=== PATIENT | female | born 1990 | race Caucasian/White ===

== ENCOUNTER 2017-01-26 21:13 | Emergency (ER) | payer OTHER | END 2017-01-26 23:31 | disposition home or self-care (01) | LOC: FER 21:13 | DX: J40 Bronchitis, not specified as acute or chronic (principal); J32.9 Chronic sinusitis, unspecified; F17.200 Nicotine dependence, unspecified, uncomplicated | CPT/HCPCS: 93005 ==

== ENCOUNTER 2022-02-13 22:44 | Emergency (ER) | payer OTHER ==
[~2022-02-13 22:44] MED LIST: BACLOFEN 10MG T10 MG PO; BACTRIM DS TAB1 EACH PO; ILOTYCIN1 GM OD; MEDROL 4MG DOSEP4 MG PO; NAPROXEN500 MG PO; NORCO 5-325 TA1 EACH PO; PERCOCET 5-3251 EACH PO; VOLTAREN **OUT75 MG PO; ZOFRAN4 MG PO
[2022-02-13 23:18] LABS: BASOPHIL 0.2 % (0-2); EOSINOPHIL 0.3 % (0-5); HCT 41.7 % (37.0-47.0); HGB 13.7 g/dl (12.5-16.0); LYMPHOCYTE 4.5 % (15-48); MCHC 32.9 g/dL (32.0-36.0); MCV 88.2 fL (78.0-100.0); MONOCYTE 3.1 % (0-12); MPV 9.8 fL (6.0-9.5); NEUTROPHIL 91.5 % (41-80); NRBC 0; PLT 177 K/uL (150-400); RBC 4.73 M/uL (4.20-5.40); RDW 13.2 % (11.5-14.0)
[2022-02-13 23:36] LABS: ALBUMIN 3.7 g/dL (3.4-5.0); ALKALINE PHOSHATASE 73 U/L (46-116); ALT 25 U/L (14-59); AST 23 U/L (15-37); BILIRUBIN - TOTAL 0.4 mg/dL (0.2-1.0); BUN 4 mg/dL (7-18); BUN/CREAT RATIO (CALC) 7.1 RATIO; CHLORIDE 101 mmol/L (98-107); CO2 (BICARBONATE) 25 mmol/L (21-32); CREATININE 0.56 mg/dL (0.51-0.95); GLUCOSE 101 mg/dL (74-106); LIPASE 59 U/L (73-393); POTASSIUM 3.8 mmol/L (3.5-5.1); TOTAL PROTEIN 7.7 g/dL (6.4-8.2)
[2022-02-14 00:32] LABS: CORONAVIRUS 2019 SARS-COV-2 NEGATIVE (NEGATIVE); INFLUENZA A NAA NEGATIVE (NEGATIVE)
[2022-02-14 02:27] LABS: BILIRUBIN NEGATIVE (NEGATIVE); BLOOD NEGATIVE Ery/uL (NEGATIVE); COLOR YELLOW (YELLOW); GLUCOSE (U) NORMAL (NORMAL); LEUKOCYTES TRACE Leu/uL (NEGATIVE); NITRITE POSITIVE (NEGATIVE); PROTEIN NEGATIVE (NEGATIVE); UROBILINOGEN 0.2 mg/dL (0.2-1.0); pH 7.5 (5.0-9.0)
[2022-02-14 02:29] LABS: CLARITY HAZY (CLEAR)
[2022-02-14 02:31] LABS: AMPHETAMINES POSITIVE (NEGATIVE); BARBITURATES NEGATIVE (NEGATIVE); ECSTASY (MDMA) NEGATIVE (NEGATIVE); MARIJUANA (THC) NEGATIVE (NEGATIVE); METHADONE NEGATIVE (NEGATIVE); OPIATES POSITIVE (NEGATIVE); OXYCODONE POSITIVE (NEGATIVE)
[2022-02-14 02:34] LABS: BACTERIA 3+; URINARY RBC RARE
[2022-02-14] MEDS ORDERED: BACTRIM DS TAB1 EACH PO (04:22)
== END 2022-02-14 05:31 | disposition home or self-care (01) ==
LOC: FER 22:44
PROVIDERS: Internal Medicine
DX: N39.0 Urinary tract infection, site not specified (principal); E04.1 Nontoxic single thyroid nodule; F15.10 Other stimulant abuse, uncomplicated; F17.210 Nicotine dependence, cigarettes, uncomplicated; Z20.822 Contact with and (suspected) exposure to COVID-19; Z28.310 Unvaccinated for COVID-19
CPT/HCPCS: 36415; 71045; 71275; 72128; 80053; 80305; 81001; 83605; 83690; 84145; 84484; 85025; 87040; 93005; J0696; J1170; J1885; J2060; J7030; Q9967; U0002